=== PATIENT | female | born 2000 | race Two or more races ===

== ENCOUNTER 2022-04-07 05:14 | Inpatient (IN) | payer OTHER ==
[~2022-04-07] VITALS: Ht 157.5 cm; Wt 2.3 kg
[2022-04-07] MEDS ORDERED: PRENATAL + DHA1 EAC1 (06:00)
[2022-04-10] MEDS ORDERED: COLACE100 MG PO (07:43)
[2022-04-10] MEDS ORDERED: SIMETHICONE125 M1 PO (07:44)
[2022-04-10] MEDS ORDERED: IBUPROFEN800 MG PO (07:45)
== END 2022-04-10 14:41 | disposition home or self-care (01) | DRG 807 ==
LOC: LDR 05:14 → EDBD 05:14 → OB/GYN 05:14
PROVIDERS: ADMIT Specialist; ATTEND Specialist
PROC: 4A1HXCZ Monitoring of Products of Conception, Cardiac Rate, External Approach (ICD-10-PCS; 2022-04-07)
PROC: 3E0P7VZ Introduction of Hormone into Female Reproductive, Via Natural or Artificial Opening (ICD-10-PCS; 2022-04-07)
PROC: 3E033VJ Introduction of Other Hormone into Peripheral Vein, Percutaneous Approach (ICD-10-PCS; 2022-04-07)
PROC: 10E0XZZ Delivery of Products of Conception, External Approach (ICD-10-PCS; principal; 2022-04-07 19:00)
DX: O61.0 Failed medical induction of labor (principal); O36.5930 Maternal care for other known or suspected poor fetal growth, third trimester, not applicable or unspecified; Z37.0 Single live birth; Z3A.38 38 weeks gestation of pregnancy; Z20.822 Contact with and (suspected) exposure to COVID-19